=== PATIENT | male | born 1960 | race Caucasian/White ===

== ENCOUNTER → 2018-02-01 | Day surgery (SDC) | payer OTHER ==
[~2018-02-01] VITALS: Ht 188 cm; Wt 111.4 kg
[~2018-02-01] MED LIST: AMLO-110 PO; ATROPINE SULFATE 0.1 MG/ML 5ML SYR IV PRN; BACITRACIN OINT 15 GM TUBE ONE; CEFAZOLIN 2000MG IV PUSH 15 ML IV SCH; DEXAMETHASONE SOD INJ 4 MG/ML VIAL ONE; EpHEDrine SULFATE INJ 50 MG/ML AMP IV PRN; FENTANYL CITRATE INJ 50 MCG/1 ML 2 ML VIAL IV PRN; FENTANYL CITRATE INJ 50 MCG/1 ML 2 ML VIAL ONE; KETOROLAC TROMETHAMINE 30 MG/ML VIAL IV STA; KETOROLAC TROMETHAMINE 30 MG/ML VIAL ONE; LACTATED RINGER'S 1000ML 1,000 ML IV SCH; LIDOCAINE HCL 2% 2 ML VIAL (20MG/ML) ONE; LIDOCAINE/EPINEPHRINE 1% 20 ML VIAL ONE; METF-383 PO; MIDAZOLAM HCL 1 MG/ML 2ML VIAL ONE; NAPR-1169 PO; ONDANSETRON INJ 2 MG/ML 2 ML VIAL IV PRN; ONDANSETRON INJ 2 MG/ML 2 ML VIAL ONE; OXYC-57 PO; PERCOCET HOME PACK PO ONE; PROMETHAZINE HCL INJ 6.25 MG in SODIUM CHLORIDE 0.9% 50ML 50 ML IV PRN; PROPOFOL IV EMULSION 10 MG/ML 20 ML VIAL IV ONE; TESTOSTERONE CYPIONATE IM 200 MG/ML VIAL IM ONE
[2018-02-01 15:45] VITALS: BP 154/93; PULSE 80; TEMP 36.7; O2SAT 97; Ht 188 cm; Wt 111.4 kg
[2018-02-01] MEDS: CEFAZOLIN SOD 2000MG/15 ML IV PUSH IV ONE ×2 (16:19→18:19)
--- NOTE | 2018-02-01 17:09 | History & Physical Bridge Note ---
H&P Re-Evaluation Bridge Note: I have examined the patient, reviewed the History & Physical and in the interval since the performance of the History & Physical I have noted the following changes of clinical significance: No changes noted
--- NOTE | 2018-02-01 20:30 | [facility] Operative Report ---
Operative Report Operative Date Feb 01, 2018. Pre-Operative Diagnosis Bilateral scrotal masses Post-Operative Diagnosis Bilateral scrotal masses - history of lymphoma Procedure(s) Performed Bilateral simple orchiectomy Surgeon Dr June Bridge Operator Surgeon(s) none Estimated Blood Loss 5cc Findings firm masses in testes left greater than right Fluids 1200mL Specimens A. Left Testis B. Right Testis Drains 10 Fr round MABLE left scrotum Anesthesia Type General Complication(s) none Disposition yes Surgical ICU (icu recovery at night ) Indications enlarging painful masses bilateral testes. desires definitive therapy for presumed lymphoma involvement of testes. Has systemic disease as well and orchiectomy panned prior to systemic chemo. Description of Procedure Patient had general LMA anesthesia and was placed supine on the OR table. His genitals were shaved prepped and draped in sterile fashion. Time out held with team. I selected an avascular area in the right upper scrotum and infiltrated the intended incision with 1% lidocaine with epi. I then made a 20mm longitudinal incision through skin. I divided subcutaneous tissues and dartos with cautery. I Used a Arvin camp to lift the cord up out of the incision. I passed a emeli drain around the cord. I the right cord into 2 packets and divided the cord with two 0-silk suture ligatures. I then used cautery and blunt dissection to free the right testis within in its tunical vaginalis from the scrotum. I then carefully divided the gubernacular attachments and passed the specimen off the table. I used cautery to control any bleeding vessels and then irrigated the right scrotum. I placed a raytec in the empty scrotum and moved on to the left side. I selected an avascular area in the left upper scrotum and infiltrated the intended incision with 1% lidocaine with epinephrine. I then made a 30mm longitudinal incision sharply through skin. I divided subcutaneous tissues and dartos with cautery. I Used a Arvin camp to lift the spermatic cord up out of the incision. I passed a emeli drain around the cord. I the left cord into 2 packets and divided the cord with two 0-silk suture ligatures. I then used cautery and blunt dissection to free the left testis within in its tunical vaginalis from the scrotum. The left side was more affixed to the dartos layer. I then carefully divided the gubernacular attachments and passed the specimen off the table. I used cautery to control any bleeding vessels and then irrigated the left scrotum. The left scrotum has a larger cavity so I elected to leave a drain here. I made a 3mm incision in the inferior scrotal skin and passed a fine hemostat into the scrotum. I grasped the tip of drain tubing and withdrew it through the skin. I rested about 3 inches of mable drain in the left scrotal cavity. I secured the drain to the skin with monocryl suture. I applied bulb suction. I irrigated each wound again and found excellent hemostasis. I then closed right and left incisions with 3 layers of absorbable suture. I applied bacitracin ointment and tegaderm dressings. I applied a gauze fluff and wrapped the low torso in an andi wrap to apply compression then mesh panties to hold all in place. He extubated uneventfully and transferred to recovery room in stable condition. I accompanied him to recovery. Plan: home tonight Drain out in 2 days. oral pain meds prn I attest to the content of the Intraoperative Record and any orders documented therein. Any exceptions are noted below.
--- NOTE | 2018-02-01 20:36 | Discharge Instructions ---
Discharge Instructions Date of Service Feb 01, 2018. Admission Reason for Admission: Testis Mass; Mantle Cell Lymphoma Discharge Discharge Diagnosis / Problem: bilateral testis masses Discharge Goals Goal(s): Improve disease control Activity Recommendations Activity Limitations: per Instructions/Follow-up section Lifting Limitations: none Exercise/Sports Limitations: as tolerated May Resume Sexual Activity: when tolerated Shower/Bathe: may shower/bathe in 3 days Driving or Machine Use: may drive once pain free and off narcotics . Instructions / Follow-Up Instructions / Follow-Up drain to be removed in office Tuesday afternoon. may shower on tuesday off work until tuesday next week. use ibuprofen or naproxen for mild pain and percocet for moderate or severe pain use stool softener daily until off narcotics Current Hospital Diet Patient's current hospital diet: Discharge Diet Recommended Diet: Regular Diet, Diabetes Type 2 Diet Procedures Procedures Performed: Bilateral simple orchiectomy Pending Studies Studies pending at discharge: yes List of pending studies: pathology Medical Emergencies . Who to Call and When: Medical Emergencies: If at any time you feel your situation is an emergency, please call 911 immediately. . Non-Emergent Contact Non-Emergency issues call your: Urologist Call Non-Emergent contact if: temperature is above 100.5, your pain is not controlled, wound has increased drainage, wound has increased redness . . "Provider Documentation" section prepared by Anita June. . [place] Drug Monitoring Program Search Results: patient reviewed within database, no issues identified
--- NOTE | 2018-02-01 20:46 | Anesthesiology Progress Note ---
Anesthesia Post Op Note Date & Time Feb 01, 2018 at 20:46 Vital Signs Pain Intensity: 0.0 Vital Signs Past 12 Hours Date Time Temp Pulse Resp B/P (MAP) Pulse Ox O2 Delivery O2 Flow Rate FiO2 02/01/18 15:45 36.7 80 18 154/93 (113) 97 Room Air Notes Mental Status: alert / awake / arousable, participated in evaluation Pt Amnestic to Procedure: Yes Nausea / Vomiting: adequately controlled Pain: adequately controlled Airway Patency, RR, SpO2: stable & adequate BP & HR: stable & adequate Hydration State: stable & adequate Anesthetic Complications: no major complications apparent
--- NOTE | 2018-02-01 20:47 | Anesthesiology Progress Note ---
Anesthesia Post Op Note Date & Time Feb 01, 2018 at 20:47 Vital Signs Pain Intensity: 0.0 Vital Signs Past 12 Hours Date Time Temp Pulse Resp B/P (MAP) Pulse Ox O2 Delivery O2 Flow Rate FiO2 02/01/18 15:45 36.7 80 18 154/93 (113) 97 Room Air Notes Mental Status: alert / awake / arousable, participated in evaluation Pt Amnestic to Procedure: Yes Nausea / Vomiting: adequately controlled Pain: adequately controlled Airway Patency, RR, SpO2: stable & adequate BP & HR: stable & adequate Hydration State: stable & adequate Anesthetic Complications: no major complications apparent
[2018-02-01 21:44] VITALS: BP 133/85; PULSE 74; TEMP 36.4; O2SAT 97
== END | disposition home or self-care (01) ==
LOC: C.ACU 15:26
PROVIDERS: ATTEND Urology
DX: C83.19 Mantle cell lymphoma, extranodal and solid organ sites (principal); N50.9 Disorder of male genital organs, unspecified